=== PATIENT | female | born 2000 | race Hispanic/Latino ===

== ENCOUNTER 2025-03-10 15:56 | Emergency (ER) | payer BC ==
[~2025-03-10] VITALS: Ht 165.1 cm; Wt 54.4 kg
[2025-03-10 17:19] LABS: BASOPHILS # (AUTO) 0.02 K/uL (0.00-0.20); BASOPHILS % (AUTO) 0.1 % (0.0-5.0); HEMATOCRIT 44.9 % (36-48); IMMATURE GRANULOCYTE ABSOLUTE 0.09 K/uL (0-1); LYMPHOCYTES # (AUTO) 1.3 K/uL (1.0-4.8); LYMPHOCYTES % (AUTO) 7.5 % (21.0-51.0); MEAN CORPUSCULAR HEMOGLOBIN 29.6 pg (27.0-33.0); MEAN CORPUSCULAR HGB CONC 34.1 g/dL (32.0-36.0); MEAN CORPUSCULAR VOLUME 86.8 fL (79-99); MONOCYTES # (AUTO) 0.6 K/uL (0.1-1.0); MONOCYTES % (AUTO) 3.6 % (3.0-13.0); NEUTROPHILS # (AUTO) 14.8 K/uL (1.8-7.7); NEUTROPHILS % (AUTO) 88.3 % (40.0-77.0); PLATELET COUNT (AUTO) 214 K/uL (130-400); RED BLOOD CELL COUNT(AUTO) 5.17 MIL/uL (4.00-5.50); RED CELL DISTRIBUTION WIDTH 12.9 % (11.0-15.5); WHITE BLOOD COUNT (AUTO) 16.8 K/uL (4.8-10.8)
[2025-03-10] MEDS: FAMOTIDINE 20MG VIAL IV STA (17:35)
[2025-03-10] MEDS: ondanSETRON 4MG INJ IVP STA (17:35)
[2025-03-10] MEDS: DICYCLOMINE HCL 10 MG/5 ML ML PO ONE (17:35)
[2025-03-10] MEDS: MAG/ALUM/SIMETH 30 ML UDCUP PO ONE (17:35)
[2025-03-10] MEDS: LIDOCAINE HCL 2% VISCOUS 15 ML UDCUP PO ONE (17:35)
[2025-03-10] MEDS: 0.9%NACL 1000ML 1,000 ML IV STA (17:35)
[2025-03-10 17:51] LABS: APPEARANCE,URINE CLOUDY (CLEAR); BILIRUBIN,URINE NEGATIVE (NEGATIVE); COLOR,URINE YELLOW (YELLOW); GLUCOSE, URINE (UA) NEGATIVE (NEGATIVE); KETONES,URINE 60 mg/dL (NEGATIVE); LEUKOCYTE ESTERASE ,URINE 250 Leu/uL (NEGATIVE); NITRATE,URINE NEGATIVE (NEGATIVE); PROTEIN,URINE 50 mg/dL (NEGATIVE); UROBILINOGEN,URINE 0.2 mg/dL (0.2-1.0)
[2025-03-10 17:55] LABS: ADD UA MICROSCOPIC YES
[2025-03-10 17:56] LABS: CREATININE 0.9 mg/dL (0.5-1.0); POTASSIUM 3.8 mmol/L (3.5-5.1)
[2025-03-10 17:57] LABS: BACTERIA,URINE FEW /HPF (None Seen); MUCUS,URINE FEW LPF (None Seen); SQUAMOUS EPITHELIAL CELL,UR FEW /HPF (0-2); UNCLASSIFIED CRYSTAL 20 /HPF (None Seen)
[2025-03-10 18:00] LABS: ALBUMIN 5.2 g/dL (3.5-5.0); BILIRUBIN,DIRECT 0.1 mg/dL (0.0-0.3); BILIRUBIN,TOTAL 0.7 mg/dL (0.2-1.0); TOTAL PROTEIN, SERUM 8.9 g/dL (6.0-8.3)
[2025-03-10] MEDS ORDERED: ONDA-243 PO (18:52)
--- NOTE | 2025-03-10 18:53 | ERN ---
ED Note History of Present Illness Stated Complaint: EPIGASTRIC PAIN, HX OF GERD Chief Complaint: Abdominal Pain Time Seen by MD: 15:57 Time Seen by Midlevel: 16:00 Dictation: 24-YEAR-OLD FEMALE WITH A HISTORY OF GERD, GASTRITIS AND ANXIETY COMING IN C OMPLAINING OF EPIGASTRIC PAIN THAT STARTED YESTERDAY. PATIENT STATES SHE ALREADY TAKES PANTOPRAZOLE AND SUCRALFATE A ITS AT HOME PRESCRIBED BY HER GI DOCTOR. PATIENT STATES SHE HAS A APPOINTMENT ON FRIDAY WITH HER SPECIALIST. DENIES HAVING ANY FEVERS, NAUSEA OR VOMITING. Allergies: Coded Allergies: No Known Drug Allergies (Unverified Allergy, Unknown, 03/10/25) Home Meds Active Scripts Ondansetron (Ondansetron Odt) 4 Mg Tab.rapdis, 4 MG PO Q6HPRN PRN for nausea for 3 Days, #12 TAB 0 Refills Prov:ELIZABETH BOYD TAPPET ADJUSTER 03/10/25 Past Medical History Past Medical History: Anxiety, GERD Additional Past Medical Hx: ADHD Surgical History: None LMP: Feb 08, 2025 : 0 Review of System Dictation CONSTITUTIONAL: NEGATIVE FOR FEVER,CHILLS, AND WEIGHT LOSS EYES: NEGATIVE FOR INJURY, PAIN,REDNESS, AND DISCHARGE ENT: NEGATIVE FOR INJURY,PAIN OR SWELLING CARDIOVASCULAR: NEGATIVE FOR CHEST PAIN, PALPITATIONS, AND EDEMA RESPIRATORY: NEGATIVE FOR SHORTNESS OF BREATH, COUGH, AND WHEEZING, ABDOMEN/GI: EPIGASTRIC PAIN, NAUSEA, VOMITING, NO DIARRHEA, AND NO CONSTIPATION BACK: NEGATIVE FOR INJURY AND PAIN : NEGATIVE FOR INJURY, BLEEDING AND DISCHARGE MS/EXTREMITY: NEGATIVE FOR INJURY AND DEFORMITY SKIN: NEGATIVE FOR RASH, AND DISCOLORATION NEURO: NEGATIVE FOR HEADACHE, WEAKNESS, NUMBNESS, TINGLING, AND SEIZURE PSYCH: NEGATIVE FOR SUICIDE IDEATION, HOMICIDAL IDEATION, AND HALLUCINATIONS Review of Systems: was completed Initial Vital Sign VS Vital Signs Date Time Temp Pulse Resp B/P (MAP) Pulse Ox O2 Delivery O2 Flow Rate FiO2 03/10/25 15:57 98.1 63 20 129/85 100 Room Air 0 03/10/25 16:14 21 Physical Exam Dictation GENERAL: AWAKE, ALERT, NAD HEAD/FACE: NORMOCEPHALIC, ATRAUMATIC EYES: PERRL, EOMI, VISION AT BASELINE ENT: ORAL CAVITY CLEAR, TMS CLEAR, NO SIGNS OF INFECTION NECK: TRACHEA MIDLINE, SUPPLE, NO NUCHAL RIGIDITY CARDIOVASCULAR: RRR, NORMAL S1/S2, NO MRGS, NO JVD RESPIRATORY: CTAB, NO RESPIRATORY DISTRESS, NO RALES OR WHEEZES ABDOMEN: SOFT, NON-TENDER, NON-DISTENDED, NORMAL BOWEL SOUNDS, NO GUARDING OR REBOUND. SKIN: WARM, DRY, NORMAL TURGOR, NO RASH MS/EXTREMITY: PULSES EQUAL, NO CYANOSIS, NEUROVASCULAR INTACT, FROM NEURO: COAX4, GCS 15, STRENGTH 5/5, CN 2-12 INTACT, NORMAL CEREBELLAR EXAM, NORMAL GAIT, PSYCH: NORMAL BEHAVIOR, MOOD, AND AFFECT NORMAL Results (Laboratory/Radiology) Laboratory/Radiology Laboratory Tests Test 03/10/25 17:10 03/10/25 17:40 White Blood Count 16.8 K/uL (4.8-10.8) H Red Blood Count 5.17 MIL/uL (4.00-5.50) Hemoglobin 15.3 g/dL (12.0-16.0) Hematocrit 44.9 % (36-48) Mean Corpuscular Volume 86.8 fL (79-99) Mean Corpuscular Hemoglobin 29.6 pg (27.0-33.0) Mean Corpuscular Hemoglobin Concent 34.1 g/dL (32.0-36.0) Red Cell Distribution Width 12.9 % (11.0-15.5) Platelet Count 214 K/uL (130-400) Mean Platelet Volume 12.8 fL (7.5-10.5) H Immature Granulocyte % (Auto) 0.5 % (0-1) Neutrophils (%) (Auto) 88.3 % (40.0-77.0) H Lymphocytes (%) (Auto) 7.5 % (21.0-51.0) L Monocytes (%) (Auto) 3.6 % (3.0-13.0) Eosinophils (%) (Auto) 0.0 % (0.0-8.0) Basophils (%) (Auto) 0.1 % (0.0-5.0) Neutrophils # (Auto) 14.8 K/uL (1.8-7.7) H Lymphocytes # (Auto) 1.3 K/uL (1.0-4.8) Monocytes # (Auto) 0.6 K/uL (0.1-1.0) Eosinophils # (Auto) 0.00 K/uL (0.00-0.70) Basophils # (Auto) 0.02 K/uL (0.00-0.20) Absolute Immature Granulocyte (auto 0.09 K/uL (0-1) Nucleated Red Blood Cells 0.0 % (0.0-0.19) White Cell Morphology Comment See comments Sodium Level 140 mmol/L (136-145) Potassium Level 3.8 mmol/L (3.5-5.1) Chloride Level 101 mmol/L (101-111) Carbon Dioxide Level 27 mmol/L (21-32) Blood Urea Nitrogen 17 mg/dL (7-18) Creatinine 0.9 mg/dL (0.5-1.0) Glomerular Filtration Rate Calc 92 mL/min (>90) Random Glucose 99 mg/dL (70-105) Total Calcium 9.7 mg/dL (8.5-10.1) Total Bilirubin 0.7 mg/dL (0.2-1.0) Direct Bilirubin 0.1 mg/dL (0.0-0.3) Aspartate Amino Transf (AST/SGOT) 30 U/L (10-37) Alanine Aminotransferase (ALT/SGPT) 25 U/L (12-78) Alkaline Phosphatase 66 U/L (50-136) Total Protein 8.9 g/dL (6.0-8.3) H Albumin 5.2 g/dL (3.5-5.0) H Lipase 22 U/L (16-77) Human Chorionic Gonadotropin, Quant 1 mIU/mL (0-5) Urine Color YELLOW (YELLOW) Urine Appearance CLOUDY (CLEAR) H Urine pH 6.0 (5.0-8.0) Urine Specific [place] 1.028 (1.001-1.031) Urine Protein 50 mg/dL (NEGATIVE) H Urine Glucose (UA) NEGATIVE mg/dL (NEGATIVE) Urine Ketones 60 mg/dL (NEGATIVE) H Urine Occult Blood +- (TRACE) (NEGATIVE) H Urine Nitrate NEGATIVE (NEGATIVE) Urine Bilirubin NEGATIVE mg/dL (NEGATIVE) Urine Urobilinogen 0.2 mg/dL (0.2-1.0) Urine Leukocyte Esterase 250 Carmelo/uL (NEGATIVE) H Urine RBC 2-5 /HPF (0-1) H Urine WBC 6-10 /HPF (0-1) H Urine Squamous Epithelial Cells FEW /HPF (0-2) Urine Other Crystals (Auto) 20 /HPF (None Seen) Urine Bacteria FEW /HPF (None Seen) Labs Reviewed?: Yes ED Course ED Course Orders Procedure Category Date Status Time Cbc With Differential LAB 03/10/25 Complete 17:01 Basic Metabolic Panel LAB 03/10/25 Complete 17:01 Lipase LAB 03/10/25 Complete 17:01 Hepatic Function Panel LAB 03/10/25 Complete 17:01 0.9%Nacl 1000ml (Ns PHA 03/10/25 Complete 1000ml) 17:02 Ondansetron 4mg Inj PHA 03/10/25 Complete (Zofran 4mg Inj) 17:02 Famotidine 20mg Vial PHA 03/10/25 Complete (Pepcid 20mg Vial) 17:02 Lidocaine Hcl 2% PHA 03/10/25 Complete Viscous (Lidocaine Hcl 17:30 Mag/Alum/Simeth 30ml PHA 03/10/25 Complete (Maalox Plus 30ml) 17:30 Dicyclomine Hcl PHA 03/10/25 Complete (Bentyl 10mg/5ml 17:30 Hcg,Quantitative LAB 03/10/25 Complete 17:36 Urinalysis Profile LAB 03/10/25 Complete 17:36 Culture Urine GARY 03/10/25 In Process 17:56 Current Medications Medications (Trade) Dose Ordered Sig/Felton Route PRN Reason Start Time Stop Time Status Last Admin Dose Admin Al Hydroxide/Mg Hydroxide (MAALox PLUS 30ML) 30 ml ONCE ONCE PO 03/10/25 17:30 03/10/25 17:31 DC 03/10/25 17:35 Dicyclomine HCl (Bentyl 10mg/5ml Syrup) 10 mg ONCE ONCE PO 03/10/25 17:30 03/10/25 17:31 DC 03/10/25 17:35 Famotidine (Pepcid 20mg Vial) 20 mg ONCE STAT IV 03/10/25 17:02 03/10/25 17:14 DC 03/10/25 17:35 Lidocaine HCl (Lidocaine HCl 2% Viscous) 10 ml ONCE ONCE PO 03/10/25 17:30 03/10/25 17:31 DC 03/10/25 17:35 Ondansetron HCl (zoFRAN 4MG INJ) 4 mg ONCE STAT IVP 03/10/25 17:02 03/10/25 17:14 DC 03/10/25 17:35 Sodium Chloride 1,000 ml @ 1,000 mls/hr Q1H STAT IV 03/10/25 17:02 03/10/25 18:01 DC 03/10/25 17:35 Vital Signs Date Time Temp Pulse Resp B/P (MAP) Pulse Ox O2 Delivery O2 Flow Rate FiO2 03/10/25 18:57 98.1 68 20 124/81 100 Room Air* 0 21 03/10/25 16:14 98.1 63 20 120/85 100 Room Air* 0 21 03/10/25 15:57 98.1 63 20 129/85 100 Room Air 0 Medical Decision Making MDM MDM: 24-YEAR-OLD FEMALE WITH A HISTORY OF GERD, GASTRITIS AND ANXIETY COMING IN COMPLAINING OF EPIGASTRIC PAIN THAT STARTED YESTERDAY. PATIENT STATES SHE ALREADY TAKES PANTOPRAZOLE AND SUCRALFATE A ITS AT HOME PRESCRIBED BY HER GI DOCTOR. PATIENT STATES SHE HAS A APPOINTMENT ON FRIDAY WITH HER SPECIALIST. DENIES HAVING ANY FEVERS, NAUSEA OR VOMITING. BLOOD WORK UNREMARKABLE OTHER THAN LEUKOCYTOSIS THAT COULD BE RELATED TO VOMITING. PHYSICAL EXAM OF THE ABDOMEN IS BENIGN. PATIENT STATES HE FEELS MUCH BETTER AFTER FLUIDS ANTACIDS ANTIEMETICS. PATIENT STATES SHE ALREADY HAS PANTOPRAZOLE AND SUCRALFATE AT HOME SO I WOULD JUST RISK OF THE ANTIEMETIC AND HAVE PATIENT FOLLOW UP ON FRIDAY WITH HER GI SPECIALIST. EDUCATED ON SIGNS AND SYMPTOMS OF WHEN TO RETURN BACK TO THE ER. PATIENT VERBALIZED UNDERSTANDING, ANSWERED ALL QUESTIONS. DIFFERENTIAL DIAGNOSIS: PANCREATITIS, GASTROENTERITIS, GERD, GASTRITIS RATIONALE: TESTS CONSIDERED AND ORDERED SECONDARY TO SHARED DECISION MAKING INCLUDE: PREVIOUS OUTSIDE RECORDS REVIEWED: OLD ER VISITS. RISK OF COMPLICATION AND/OR MORBIDITY OR MORTALITY OF PATIENT MANAGEMENT: NONE MEDICATIONS-PER MEDICATION RECONCILIATION NEED FOR HOSPITALIZATION: PATIENT DOES NOT MEET CRITERIA FOR HOSPITALIZATION. NEED FOR EMERGENCY MAJOR/MINOR SURGERY: NO THERE ARE NO SOCIAL CONCERNS WITH THIS PATIENT. PRESCRIPTION DRUG MANAGEMENT PRESCRIPTIONS WILL INCLUDE SYMPTOMATIC CARE PATIENT'S PRIOR EXTERNAL MEDICAL RECORDS FROM OTHER ER VISITS WERE REVIEWED BY ME INDICATED. PRIOR TESTING AND RESULTS FROM PREVIOUS VISITS WERE REVIEWED. PRIOR TESTS WERE TAKEN INTO ACCOUNT WITH MEDICAL DECISION MAKING AND RESOURCE UTILIZATION, INDEPENDENT HISTORIAN/HISTORIANS WERE USED TO OBTAIN COMPLETE MEDICAL HISTORY. I INDEPENDENTLY INTERPRETED THE TEST THAT WERE PERFORMED, RESULTS WERE REVIEWED BY ME AND CONSIDERED FINDINGS ON RADIOLOGY IF ORDERED. MEDICAL MANAGEMENT AND EXAMINATION INTERPRETATION DISCUSSIONS WERE HAD BY ME WITH OTHER QUALIFIED HEALTHCARE PROFESSIONALS INDICATED FOR THE PATIENT'S CARE. DX & DISP Disposition: Discharge Departure Impression: Primary Impression: Gastritis Condition: Stable Scripts Ondansetron (Ondansetron Odt) 4 Mg Tab.rapdis 4 MG PO Q6HPRN PRN for nausea for 3 Days, #12 TAB 0 Refills Prov: ELIZABETH BOYD NP 03/10/25 Additional Instructions: AVOID ANY GREASY, SPICY, CAFFEINATED DRINKS. FOLLOW UP WITH YOUR SPECIALIST ON FRIDAY. RETURN TO THE HOSPITAL IF YOU HAVE ANY WORSENING SYMPTOMS LIKE FEVER, NAUSEA OR VOMITING OR ANY SEVERE ABDOMINAL PAIN. Referrals: SHERLY CASTELLANO [facility] (PCP) Time of Disposition: 18:51 I have reviewed the case, and I agree with, Diagnosis and Plan ELIZABETH BOYD NP March 10, 2025 18:53 BRITTNEY AMADO DO March 11, 2025 10:00
[2025-03-10 18:57] VITALS: BP 124/81; PULSE 68; RESP 20; TEMP 98.1; O2SAT 100
== END 2025-03-10 18:59 | disposition home or self-care (01) ==
LOC: EDH 15:56
DX: K29.70 Gastritis, unspecified, without bleeding (principal); R10.2 Pelvic and perineal pain; K21.9 Gastro-esophageal reflux disease without esophagitis; F41.9 Anxiety disorder, unspecified; Z79.899 Other long term (current) drug therapy
CPT/HCPCS: 99284; 96374; 96375; 80076; 80048; 84702; 83690; 85025; 87086; 81001; 36415; J3490; J7030; J2405

== ENCOUNTER 2025-05-25 16:26 | Emergency (ER) | payer BC ==
[~2025-05-25] VITALS: Ht 165.1 cm; Wt 56.7 kg
[~2025-05-25 16:26] MED LIST: ONDA-243 PO
[2025-05-25 17:43] LABS: IMMATURE GRANULOCYTE ABSOLUTE 0.09 K/uL (0-1); NUCLEATED RED BLOOD CELLS 0.0 % (0.0-0.19); PLATELET COUNT (AUTO) 209 K/uL (130-400); RED BLOOD CELL COUNT(AUTO) 4.59 MIL/uL (4.00-5.50); RED CELL DISTRIBUTION WIDTH 13.3 % (11.0-15.5); WHITE BLOOD COUNT (AUTO) 17.8 K/uL (4.8-10.8)
[2025-05-25 17:52] LABS: CREATININE 0.7 mg/dL (0.5-1.0); GLOMERULAR FILTR. RATE CALC 125.0 mL/min (>90); GLUCOSE,RANDOM 115.0 mg/dL (70-105); SODIUM SERUM 138.0 mmol/L (136-145); UREA NITROGEN, BLOOD 17.0 mg/dL (7-18)
[2025-05-25 18:01] LABS: ASPARTATE AMINOTRANSFERASE 17.0 U/L (10-37); TOTAL PROTEIN, SERUM 8.6 g/dL (6.0-8.3)
--- NOTE | 2025-05-25 18:19 | ERN ---
General Chief Complaint: Nausea,Vomiting,Diarrhea Stated Complaint: VOMITING Time Seen by MD: 16:36 Source: patient History of Present Illness Initial Comments Patient is a 24-year-old female coming in to be evaluated for nausea and vomiting. Per patient she does have extensive history of gastroparesis and frequently presents with a same symptoms. Patient was sent over by PCP for IV hydration in to be evaluated. Allergies: Coded Allergies: prochlorperazine (Unverified Allergy, Unknown, 05/25/25) Home Meds Active Scripts Ondansetron (Ondansetron Odt) 4 Mg Tab.rapdis, 4 MG PO Q6HPRN PRN for nausea for 3 Days, #12 TAB 0 Refills Prov:ELIZABETH BOYD SKEIN YARD DRIER 03/10/25 Past Medical History Past Medical History: Anxiety, GERD Medical History Other: ADHD Past Surgical History: None Female( History) : 0 ROS Dictation CONSTITUTIONAL: No chills, no fever, no weakness, no diaphoresis, no malaise. HEAD/FACE: No signs of trauma. EENT: No eye pain, no blurred vision, no tearing, no double vision, no ear pain, no ear discharge, no nose pain, no nasal congestion, no throat pain, no throat swelling, no mouth pain. RESPIRATORY: No cough, no orthopnea, no SOB, no stridor, no wheezing. CARDIOVASCULAR: No chest pain, no edema, no palpitations, no syncope. GASTROINTESTINAL/ABDOMINAL: No abdominal pain, no constipation, no diarrhea, no nausea, no vomiting. GENITOURINARY: No abnormal discharge, no dysuria, no frequent urination, no hematuria. No complaints of pain in the genitals. MUSCULOSKELETAL: No back pain, no gout, no joint pain, no joint swelling, no muscle pain, no muscle stiffness, no neck pain. INTEGUMENTARY: No change in color, no change in hair/nails, no dryness, no lesion, no lumps, no rash. NEUROLOGICAL/PSYCH: No anxiety, not depressed, no emotional problem, no headache, no numbness, no pre-existing deficit, no history of seizures, no tremors, no weakness. HEMATOLOGIC/LYMPHATIC: Not anemic, no history of blood clots, no apparent b leeding, no bruising, glands not swollen. All Systems Negative, Except as Noted. Physical Exam Physical Exam Dictation VITAL SIGNS: Reviewed. GENERAL APPEARANCE: Alert, oriented x3, no acute distress, obese. HEAD AND FACE: Non-traumatic. EYES: PERRL, pink conjunctivas, eyelid no trauma, anterior chamber clear. EARS: Pinnas intact and no signs of trauma or erythema. Ear canals clear and no discharge. TMs no erythema. NOSE: No discharge, no bleeding. OROPHARYNX: Mouth normal, teeth no caries, tongue pink. Pharynx clear, no erythema. Tonsils no exudates, no abscesses noted. Mucous membrane moist. NECK: Supple, non-tender, no thyromegaly, no masses, no JVD, no bruits. BREAST: Deferred. CHEST: No tenderness, no crepitus, no paradoxical movement, no retractions. LUNGS: Clear, well-ventilated, symmetric, no rales, no wheezing, no rhonchi, no stridor, good breath sounds bilaterally. HEART: Regular rate, regular rhythm, no murmur, no gallops. VASCULAR: No peripheral edema. ABDOMEN: Soft, positive bowel sounds, nondistended, no guarding, nontender, no rebound, no masses no hepatomegaly, no splenomegaly, no Salazar's sign, no hernias. RECTAL: Deferred. GENITAL: Deferred. NEUROLOGICAL: Normal speech, gross motor function intact, gross sensory function intact. MUSCULOSKELETAL: Neck nontender, full range of motion, back nontender, full ra nge of motion. EXTREMITIES: Nontender, full range of motion. SKIN: Color pink, dry, no turgor, no rash, no lacerations, no abrasions, no contusions. LYMPHATICS: Deferred. Results Laboratory and Microbiology Lab and Micro Result Laboratory Tests Test 05/25/25 17:34 05/25/25 19:09 White Blood Count 17.8 K/uL (4.8-10.8) H Red Blood Count 4.59 MIL/uL (4.00-5.50) Hemoglobin 13.5 g/dL (12.0-16.0) Hematocrit 39.4 % (36-48) Mean Corpuscular Volume 85.8 fL (79-99) Mean Corpuscular Hemoglobin 29.4 pg (27.0-33.0) Mean Corpuscular Hemoglobin Concent 34.3 g/dL (32.0-36.0) Red Cell Distribution Width 13.3 % (11.0-15.5) Platelet Count 209 K/uL (130-400) Mean Platelet Volume 13.5 fL (7.5-10.5) H Immature Granulocyte % (Auto) 0.5 % (0-1) Neutrophils (%) (Auto) 94.0 % (40.0-77.0) H Lymphocytes (%) (Auto) 4.2 % (21.0-51.0) L Monocytes (%) (Auto) 1.2 % (3.0-13.0) L Eosinophils (%) (Auto) 0.0 % (0.0-8.0) Basophils (%) (Auto) 0.1 % (0.0-5.0) Neutrophils # (Auto) 16.8 K/uL (1.8-7.7) H Lymphocytes # (Auto) 0.7 K/uL (1.0-4.8) L Monocytes # (Auto) 0.2 K/uL (0.1-1.0) Eosinophils # (Auto) 0.00 K/uL (0.00-0.70) Basophils # (Auto) 0.02 K/uL (0.00-0.20) Absolute Immature Granulocyte (auto 0.09 K/uL (0-1) Nucleated Red Blood Cells 0.0 % (0.0-0.19) White Cell Morphology Comment See comments Sodium Level 138 mmol/L (136-145) Potassium Level 3.6 mmol/L (3.5-5.1) Chloride Level 100 mmol/L (101-111) L Carbon Dioxide Level 22 mmol/L (21-32) Blood Urea Nitrogen 17 mg/dL (7-18) Creatinine 0.7 mg/dL (0.5-1.0) Glomerular Filtration Rate Calc 125 mL/min (>90) Random Glucose 115 mg/dL (70-105) H Total Calcium 9.4 mg/dL (8.5-10.1) Total Bilirubin 0.4 mg/dL (0.2-1.0) Aspartate Amino Transf (AST/SGOT) 17 U/L (10-37) Alanine Aminotransferase (ALT/SGPT) 26 U/L (12-78) Alkaline Phosphatase 71 U/L (50-136) Total Protein 8.6 g/dL (6.0-8.3) H Albumin 4.7 g/dL (3.5-5.0) Lipase 22 U/L (16-77) Urine Color YELLOW (YELLOW) Urine Appearance CLEAR (CLEAR) Urine pH 6.5 (5.0-8.0) Urine Specific [place] 1.033 (1.001-1.031) Urine Protein 50 mg/dL (NEGATIVE) H Urine Glucose (UA) NEGATIVE mg/dL (NEGATIVE) Urine Ketones 150 mg/dL (NEGATIVE) H Urine Occult Blood +- (TRACE) (NEGATIVE) H Urine Nitrate NEGATIVE (NEGATIVE) Urine Bilirubin NEGATIVE mg/dL (NEGATIVE) Urine Urobilinogen 0.2 mg/dL (0.2-1.0) Urine Leukocyte Esterase 25 Carmelo/uL (NEGATIVE) H Urine RBC 2-5 /HPF (0-1) H Urine WBC 0-1 /HPF (0-1) Urine Squamous Epithelial Cells RARE /HPF (0-2) Urine Bacteria RARE /HPF (None Seen) Urine HCG, Qualitative NEGATIVE (NEGATIVE) Urine Opiates Screen NEGATIVE (NEGATIVE) Urine Barbiturates Screen NEGATIVE (NEGATIVE) Urine Phencyclidine Screen NEGATIVE (NEGATIVE) Urine Amphetamines Screen NEGATIVE (NEGATIVE) Urine Benzodiazepines Screen POSITIVE (NEGATIVE) H Urine Cocaine Screen NEGATIVE (NEGATIVE) Urine Marijuana (THC) Screen POSITIVE (NEGATIVE) H Labs Reviewed?: Yes MDM MDM: Differential diagnosis: Gastritis, gastroenteritis, gastroparesis Rationale: Tests considered and ordered secondary to shared decision making include: Previous outside records reviewed: Old ER visits. Risk of complication and/or morbidity or mortality of patient management: None Medications-Per medication reconciliation Need for hospitalization: Patient does not meet criteria for hospitalization. Need for emergency major/minor surgery: No There are no social concerns with this patient. Prescription drug management Prescriptions will include symptomatic care Patient's prior external medical records from other ER visits were reviewed by me as indicated. Prior testing and results from previous visits were reviewed. Prior tests were taken into account with medical decision making and resource utilization, independent historian/historians were used to obtain complete medical history. I independently interpreted the test that were performed, results were reviewed by me and considered findings on radiology if ordered. Medical management and examination interpretation discussions were had by me with other qualified healthcare professionals as indicated for the patient's care. ED Course Orders Procedure Category Date Status Time Cbc With Differential LAB 7/16/25 Complete 17:28 Comprehensive LAB 05/25/25 Complete Metabolic Panel 17:28 ,Urine Test LAB 05/25/25 Complete 17:28 Urinalysis Profile LAB 05/25/25 Complete 17:28 0.9%Nacl 1000ml (Ns PHA 05/25/25 Complete 1000ml) 17:30 Pantoprazole 40mg Inj PHA 05/25/25 Complete (Protonix 40mg Inj 17:30 Lipase LAB 05/25/25 Complete 17:28 Drug Screen Urine LAB 05/25/25 Complete 17:28 Ceftriaxone 2gm Vial PHA 05/25/25 Complete (Rocephin 2gm Inj) 20:00 0.9%Nacl 1000ml (Ns PHA 05/25/25 In Process 1000ml) 20:00 Ondansetron 4mg Inj PHA 05/25/25 Complete (Zofran 4mg Inj) 20:30 Current Medications Medications (Trade) Dose Ordered Sig/Felton Route PRN Reason Start Time Stop Time Status Last Admin Dose Admin Ceftriaxone Sodium (Rocephin 2gm Inj) 2 gm ONCE ONCE IVPB 05/25/25 20:00 05/25/25 20:01 DC 05/25/25 19:56 Ondansetron HCl (zoFRAN 4MG INJ) 4 mg ONCE ONCE IVP 05/25/25 20:30 05/25/25 20:31 DC 05/25/25 20:15 Pantoprazole Sodium (PROTonix 40MG INJ) 40 mg ONCE ONCE IVP 05/25/25 17:30 05/25/25 17:34 DC 05/25/25 18:26 Sodium Chloride 1,000 ml @ 0 mls/hr ONCE ONCE IV 05/25/25 17:30 05/25/25 17:34 DC 05/25/25 18:26 Sodium Chloride 1,140 ml @ 380 mls/hr ONCE ONCE IV 05/25/25 20:00 05/25/25 22:59 05/25/25 19:56 Vital Signs Date Time Temp Pulse Resp B/P (MAP) Pulse Ox O2 Delivery O2 Flow Rate FiO2 05/25/25 16:27 98.6 74 18 130/78 99 Room Air DX & DISP Disposition: Discharge Departure Impression: Primary Impression: UTI (urinary tract infection) Condition: Stable Scripts Levofloxacin (Levaquin 750Mg Tabs) 750 Mg Tablet 1 TAB PO DAILY for 7 Days, #7 TAB 0 Refills Prov: SHAH,LON MD 05/25/25 Referrals: SHERLY CASTELLANO [facility] (PCP) JULIA GARCIA MD May 25, 2025 18:19 LAMAR SHAH MD May 25, 2025 22:47
[2025-05-25] MEDS: 0.9%NACL 1000ML 1,000 ML IV ONE (18:26)
[2025-05-25 19:17] LABS: APPEARANCE,URINE CLEAR (CLEAR); GLUCOSE, URINE (UA) NEGATIVE (NEGATIVE); LEUKOCYTE ESTERASE ,URINE 25 Leu/uL (NEGATIVE); NITRATE,URINE NEGATIVE (NEGATIVE); OCCULT BLOOD,URINE +- (TRACE) (NEGATIVE)
[2025-05-25 19:18] LABS: ADD UA MICROSCOPIC YES
[2025-05-25 19:19] LABS: SQUAMOUS EPITHELIAL CELL,UR RARE /HPF (0-2)
[2025-05-25 19:20] LABS: HCG,QUALITATIVE URINE NEGATIVE (NEGATIVE)
[2025-05-25 19:24] LABS: AMPHET/METH SCREEN,URINE NEGATIVE (NEGATIVE); BARBITURATE SCREEN, URINE NEGATIVE (NEGATIVE); CANNABINOID SCREEN,URINE POSITIVE (NEGATIVE); COCAINE SCREEN,URINE NEGATIVE (NEGATIVE)
[2025-05-25] MEDS: 0.9%NACL 1000ML 1,140 ML IV ONE (19:56)
[2025-05-25] MEDS ORDERED: LEVO750T68 PO (22:46)
[2025-05-25 22:53] VITALS: BP 100/56; PULSE 74; RESP 18; TEMP 98.2; O2SAT 99
== END 2025-05-25 23:04 | disposition home or self-care (01) ==
LOC: EDH 16:26
DX: N39.0 Urinary tract infection, site not specified (principal); K31.84 Gastroparesis; K21.9 Gastro-esophageal reflux disease without esophagitis; F41.9 Anxiety disorder, unspecified; Z79.899 Other long term (current) drug therapy
CPT/HCPCS: 99284; 96365; 96375; 96361; 80053; 80305; 83690; 85025; 81025; 36415; 81001; J7030 ×2; J0696; J2405; J2470